=== PATIENT | male | born 1950 | race Caucasian/White ===

== ENCOUNTER → 2018-11-28 10:52 | Outpatient (CLI) | payer MEDICARE, BC | END | disposition home or self-care (01) | LOC: D.HCCECHO 10:52 → D.HCCARDIO 11:00 → D.HCCECHO 11:00 | PROVIDERS: ATTEND Internal Medicine Cardiovascular Disease | DX: I34.0 Nonrheumatic mitral (valve) insufficiency (principal) ==

== ENCOUNTER → 2019-11-26 08:57 | Outpatient (CLI) | payer MEDICARE, BC | END | disposition home or self-care (01) | LOC: D.HCCECHO 08:57 | PROVIDERS: ATTEND Internal Medicine Cardiovascular Disease | DX: I34.0 Nonrheumatic mitral (valve) insufficiency (principal) ==

== ENCOUNTER → 2019-12-15 08:59 | Outpatient (CLI) | payer MEDICARE, BC | END | disposition home or self-care (01) | LOC: D.HCCARDIO 08:59 | PROVIDERS: ATTEND Internal Medicine Cardiovascular Disease | DX: I20.9 Angina pectoris, unspecified (principal) ==

== ENCOUNTER 2019-12-31 11:33 | Day surgery (SDC) | payer MEDICARE, BC ==
[~2019-12-31] VITALS: Ht 182.9 cm; Wt 92.1 kg
--- NOTE | ~2019-12-31 | HEMODYNAMI ---
PATIENT:NIGEL YATES MEDICAL RECORD: [id number] : 54 LOCATION:[facility] ADMISSION DATE: 12/31/19 Generatedon:12/31/201913:16 Patient name: NIGEL YATES Patient #: [id number] SSN: : 1950 Date of study: 12/31/2019 Page: Of Hemodynamic Procedure Report Patient Data Patient Demographics Procedure consent was obtained First Name: NIGEL Gender: Male Last Name: TRUDY : 1950 [facility] Initial: KHALIDA Age: 69 year(s) Patient #: [id number] Race: Unknown Additional ID: [id number] Contact details Address: [address] [place] [address] State: [place] City: [place] Zip code: [address] Past Medical History Allergies: No known allergies Admission Admission Data Admission Date: 12/31/2019 Admission Time: 11:33 Lab Results Lab Result Date: 12/31/2019 Lab Result Time: 0:00 Biochemistry Name Units Result Min Max BUN mg/dl 17 --(---*)-- 7 18 Creatinine mg/dl 1.1 --(--*-)-- 0.6 1.3 eGFR ml/min 70.15900 *-(----)-- 90 120 NONAFRICAN CBC Name Units Result Min Max Hematocrit % 42.9 --(*---)-- 42 54 Hemoglobin g/dl 14.3 --(*---)-- 13.5 17.5 Procedure Procedure Types Cath Procedure Diagnostic Procedure LHC LHC w/Coronaries Sedation Charges Moderate Sedation up to 15 minutes Procedure Description Procedure Date Procedure Date: 12/31/2019 Procedure Start Time: 13:00 Procedure End Time: 13:12 Procedure Staff Name Function Luigi Garnett MD Performing Physician Millie Wilkinson RT Monitor Elli Edwards RT Scrub Darshan Mcknight RN Nurse Procedure Data Cath Procedure Fluoroscopy Diagnostic fluoroscopy Total fluoroscopy Time: 1.6 time: 1.6 min min Diagnostic fluoroscopy Total fluoroscopy dose: 513 dose: 513 mGy mGy Contrast Material Contrast Material Type Amount (ml) Isovue 300 47 Entry Location Entry Primary Successful Side Size Upsize Upsize Entry Closure Succes sful Closure Location (Fr) 1 (Fr) 2 (Fr) Remarks Device Remarks Femoral Right 5 Fr Exoseal artery Estimated blood loss: 5 ml Diagnostic catheters Device Type Used For End Catheter Placement MULTIPACK JL 4.0 5Fr Procedure catheter MULTIPACK 3DRC 5Fr Procedure catheter MULTIPACK Pigtail 5 Fr Procedure catheter Procedure Complications No complications Procedure Medications Medication Administration Route Dosage 0.9% NaCl I.V. 100 ml/hr Oxygen etCO2 Nasal cannula 2 l/min Heparin Flush Bag added to field 2 bags (1000units/500ml NS) Lidocaine 2% added to field 20 Benadryl I.V. 50 mg Versed I.V. 2 mg Fentanyl I.V. 50 mcg Fentanyl I.V. 50 mcg Versed I.V. 1 mg Hemodynamics Rest HGB: 14.3 (g/dl) Heart Rate: 62 (bpm) Pressure Samples Time Site Value (mmHg) Purpose Heart Use Rate(bpm) 13:07 LV 135/-6,21 Snapshot 67 Gradients Valve Time Site Site Mean SEP/DFP Peak To Heart Use 1 2 (mmHg) (sec/min) Peak Rate (mmHg) (bpm) Aortic 13:08 LV AO 64 Snapshots Pre Cath Intra NCS Post Cath Vital Signs Time Heart Resp SPO2 etCO2 NIBP (mmHg) Rhythm Pain Sedation Rate (ipm) (%) (mmHg) Status Level (bpm) 12:46:14 60 13 97 0 128/79(97) NSR 0 (11) 10(A) , No pain 12:50:24 58 16 96 32.2 132/85(120) NSR 0 (11) 10(A) , No pain 12:54:38 61 11 94 39 144/77(112) NSR 0 (11) 10(A) , No pain 12:58:56 60 13 97 9 126/75(92) NSR 0 (11) 10(A) , No pain 13:03:06 59 20 99 46.5 130/80(98) NSR 0 (11) 9(A) , No pain 13:07:20 65 15 95 2.2 125/72(101) NSR 0 (11) 9(A) , No pain 13:11:30 62 11 97 8.2 125/77(93) NSR 0 (11) 9(A) , No pain Medications Time Medication Route Dose Verified Delivered Reason Notes Eff ectiveness by by 12:48:41 0.9% NaCl I.V. 100 Darshan Darshan Per ml/hr Juan Luis Mcknight physician RN RN 12:48:52 Oxygen etCO2 2 Darshan Darshan for low 02 Nasal l/min Lorigan Lorigan sats cannula RN RN 12:49:03 Heparin Flush added 2 Darshan Darshan used for Bag to bags Lorigan Lorigan procedure (1000units/500ml field RN RN NS) 12:49:13 Lidocaine 2% added 20ml Darshan Darshan for local to vial Lorigan Lorigan anesthetic field RN RN 12:53:37 Benadryl I.V. 50 mg Darshan Darshan Per Juan Luis Mcknight physician RN RN 12:55:23 Versed I.V. 2 mg Darshan Darshan for Lorigan Lorigan sedation RN RN 12:55:33 Fentanyl I.V. 50 Darshan Darshan for chest mcg Lorigan Lorigan pain RN RN 13:00:28 Fentanyl I.V. 50 Darshan Darshan for chest mcg Lorigan Lorigan pain RN RN 13:01:52 Versed I.V. 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 Start room use. 12:30:38 Informed consent obtained and on chart 12:37:11 Procedure Status Elective Heart Cath (OP). 12:37:12 Time tracking: Regular hours (M-F 7:00 - 5:00) 12:37:15 Plan of Care:Hemodynamics will remain stable., Cardiac rhythm will remain stable., Comfort level will be maintained., Respiratory function will remain adequate., Patient/ family verbilizes understanding of procedure., Procedure tolerated without complication., Recovers from procedure without complications.. 12:44:04 Patient received from Pre/Post Procedure Room to CCL 2 Alert and oriented. Tansferred to table in Supine position. 12:44:05 Warm blankets applied, and javy hugger turned on for patient comfort. 12:44:06 Correct patient and procedure confirmed by team. 12:44:06 ECG and BP/O2 sat monitors applied to patient. 12:44:08 Vital chart was started 12:44:13 Rhythm: sinus rhythm 12:44:14 Full Disclosure recording started 12::22 H&P Date Dictated: 12/09/2019 Within 30 days and on chart., H&P Addendum completed by physician on day of procedure. (MUST COMPLETE FOR ALL OUTPATIENTS). 12:44:23 Pre-procedure instructions explained to patient. 12:44:23 Pre-op teaching completed and patient verbalized understanding. 12:44:24 Family in patients room. 12:44:25 Patient NPO since Midnight. 12:44:29 Patient allergic to No known allergies 12:44:31 Is the patient allergic to Iodine/contrast media? No. 12:44:32 Is patient on blood thinner?Yes 12:44:43 LAST DOSE OF ELIQUIS SUNDAY 12:44:45 Patient diabetic? No. 12:44:49 Previous problem with sedation/anesthesia? No ? 12:44:49 Snore? Yes 12:44:50 Sleep apnea? No 12:44:52 Deviated septum? No 12:44:53 Opens mouth fully? Yes 12:44:57 Sticks out tongue? Yes 12:44:58 Airway obstruction? No ? 12:45:01 Dentures? No ? 12:45:05 Pre procedure: right dorsailis pedis pulse 2+ Normal; easily identifiable; not easily obliterated 12:45:07 Modified Mario's test Ulnar > 7 seconds. 12:45:09 Patient pain scale 0/10 ?. 12:45:12 IV patent on arrival in left hand with 0.9% NaCl at [facility]. 12:47:17 Lab Result : BUN 17 mg/dl 12:47:17 Lab Result : Creatinine 1.1 mg/dl 12:47:17 Lab Result : eGFR NONAFRICAN 70.68972 ml/min 12:47:17 Lab Result : Hemoglobin 14.3 g/dl 12:47:17 Lab Result : Hematocrit 42.9 % 12:47:20 Lab results completed and on chart. 12:47:24 Right groin area was prepped with chlora-prep and draped in sterile fashion 12:47:25 Alarms reviewed by RConnie N. 12:47:25 Sharps counted by scrub and verified by R.N. 12:48:41 0.9% NaCl 100 ml/hr I.V. was administered by Darshan Mcknight RN; Per physician; Verbal order read back and verified. 12:48:52 Oxygen 2 l/min etCO2 Nasal cannula was administered by Darshan Mcknight RN; for low 02 sats; Verbal order read back and verified. 12:49:03 Heparin Flush Bag (1000units/500ml NS) 2 bags added to field was administered by Darshan Mcknight RN; used for procedure; Verbal order read back and verified. 12:49:13 Lidocaine 2% 20ml vial added to field was administered by Darshan Mcknight RN; for local anesthetic; Verbal order read back and verified. 12:53:37 Benadryl 50 mg I.V. was administered by Darshan Mcknight RN; Per physician; Verbal order read back and verified. 12:54:00 Use device set Femoral Dx 12:54:01 ACIST Syringe (40936) opened to sterile field. 12:54:01 Bag Decanter (2002S) opened to sterile field. 12:54:02 ACIST Hand Control (64132) opened to sterile field. 12:54:03 ACIST Manifold (47610) opened to sterile field. 12:54:04 Tegaderm 4 x 4 (1626W) opened to sterile field. 12:54:05 Medline Cath Pack ([id number]) opened to sterile field. 12:54:07 DIAGNOSTIC Multipack 5Fr catheter set (GR0688) opened to sterile field. 12:54:08 SHEATH 5FR [place] (WJM262) opened to sterile field. 12:54:08 EMERALD Guide Wire (832-568) opened to sterile field. 12:54:38 Baseline sample Acquired. 12:54:57 --------ALL STOP TIME OUT------ 12:54:57 Final Timeout: patient, procedure, and site verified with staff and physician. All members of the team are in agreement. 12:54:58 Right groin site verified by team. 12:55:02 Fire Safety Assessment: A--An alcohol-based skin anteseptic being used preoperatively., C--Open oxygen or nitrous oxide is being used., D--An ESU, laser, or fiber-optic light is being used. 12:55:04 Physical assessment completed. ASA score P 2 - A patient with mild systemic disease as per Luigi Garnett MD. 12:55:07 2) 60-89 Mildly reduced kidney function, and other findings (as for stage 1) point to kidney disease. 12:55:11 Maximum allowable contrast dose (3.7 X eGFR X 0.75)197 ml. 12:55:14 Sedation plan: IV Moderate Sedation Medication:Versed, Fentanyl 12:55:23 Versed 2 mg I.V. was administered by Darshan Mcknight RN; for sedation; Verbal order read back and verified. 12:55:33 Fentanyl 50 mcg I.V. was administered by Darshan Mcknight RN; for chest pain; Verbal order read back and verified. 12:59:40 Zero performed for pressure channel P1 13:00:13 Procedure started. 13:00:23 Local anesthetic to right femoral artery with Lidocaine 2% by Luigi Garnett MD.INITIAL ACCESS ONLY 13:00:28 Fentanyl 50 mcg I.V. was administered by Darshan Mcknight RN; for chest pain; Verbal order read back and verified. 13:01:52 Versed 1 mg I.V. was administered by Darshan Mcknight RN; for sedation; Verbal order read back and verified. 13:02:12 A 5 Fr sheath was inserted into the Right Femoral artery 13:02:31 A MULTIPACK JL 4.0 5Fr catheter was advanced over the wire and used for Procedure. 13:03:52 LCA angiography performed. 13:04:12 Catheter exchanged over wire. 13:05:08 A MULTIPACK 3DRC 5Fr catheter was advanced over the wire and used for Procedure. 13:05:39 RCA angiography performed. 13:05:41 Catheter exchanged over wire. 13:05:42 ACCDominant side:Right 13:05:55 A MULTIPACK Pigtail 5 Fr catheter was advanced over the wire and used for Procedure. 13:07:24 LV gram done using YOON 13:07:26 Injector settings: Ml/sec: 10, Volume: 20, 13:07:33 LV hemodynamics recorded. 13:07:48 EF : 50 % 13:08:15 Catheter removed. 13:08:34 EXOSEAL 5Fr (EX500) opened to sterile field. 13:09:33 Sheath removed intact; hemostasis achieved with Exoseal to the Right Femoral artery. 13:09:48 Procedure ended.(Physican Out) 13:09:57 Fluoroscopy time 01.60 minutes. 13:10:04 Fluoroscopy dose: 513 mGy 13:10:04 Flurop Dose total: 513 13:10:09 Dose Area Product 31149 mGy/cm. 13:10:11 Contrast amount:Isovue 300 47ml. 13:10:13 Maximum allowable dose exceeded? No. 13:10:14 Sharps counted by scrub and verified by R.N. 13:10:17 Post-op/insertion site Right Femoral artery dressed using a 4 x 4 and Tegaderm. 13:10:19 Post-procedure physical assessment completed. ASA score P 2 - A patient with mild systemic disease as per Luigi Garnett MD. 13:10:22 Post procedure rhythm: sinus rhythm 13:10:24 Estimated blood loss: 5 ml 13:10:25 Post procedure instruction explained to patient.Patient verbalizes understanding. 13:10:25 Patient needs reinforcement of post procedure teaching. 13:10:50 Procedure type changed to Cath procedure, Diagnostic procedure, LHC, C w/Coronaries, Sedation Charges, Moderate Sedation up to 15 minutes 13:11:07 Procedure and supply charges have been captured, reviewed, submitted and are correct. 13:11:11 Procedure Complication : No complications 13:11:14 [facility] Findings: mild to moderate CAD (<70%) 13:11:15 Operative report dictated upon procedure completion. 13:11:15 See physician's report for complete and final results. 13:12:33 Vital chart was stopped 13:12:35 Report given to Pre/Post Procedure Room. 13:12:40 Patient transfered to Pre/Post Procedure Room with Bed. 13:12:42 Procedure ended. 13:12:42 Full Disclosure recording stopped 13:12:52 End room use (Document Last) 13:14:57 End room use (Document Last) 13:15:13 End room use (Document Last) Device Usage Item Name Manufacture Quantity Catalog Hospital Part Current Minimal L ot# / Number Charge Number Stock Stock Serial# Code SIMRAN Senist 1 09537 [id number] [id number] 20 Syringe Stamped (12128) Systems Inc Bag Microtek 1 697487 30499 403406 5 Decanter Stamped Inc. () ACIST Hand Acist 1 39884 703608 266695 152827 5 Control Medical (73200) Systems Inc ACIST Acist 1 91345 725670 436360 641442 5 Manifold Medical (64847) Systems Inc Tegaderm 4 3M 1 1626W 218169 676624 512597 5 x 4 (1626W) Medline Medline 1 [id number] 480906 51943 686927 5 Cath Pack ([id number]) DIAGNOSTIC Cardinal 1 [id number] 692897 42343 738843 30 Multipack Health 5Fr catheter set (ET5486) SHEATH 5FR Terumo 1 HHT425 891161 157061 277435 5 [place] (KUL902) EMERALD Cardinal 1 459-868 701019 008161 640011 5 Guide Wire Health (239-583) MULTIPACK Cardinal 1 487697 5 JL 4.0 5Fr Health catheter MULTIPACK Cardinal 1 936870 5 3DRC 5Fr Health catheter MULTIPACK Cardinal 1 275415 5 Pigtail 5 Health Fr catheter EXOSEAL 5Fr Cardinal 1 EX500 833173 715160 412315 10 (EX500) Health Signature Audit [place] Stage Time Signature Unsigned Intra-Procedure 12/31/2019 Millie Wilkinson 1:14:57 PM RT(R) Intra-Procedure 12/31/2019 Darshan 1:15:13 PM Juan Luis COELHO Intra-Procedure 12/31/2019 Luigi Garnett MD 1:16:01 PM Signatures Performing Physician : Signature : Luigi Garnett MD Date : Time : Monitor : Millie Wilkinson Signature : RT Date : Time : Nurse : Darshan Mcknight Signature : RN Date : Time : [place] [id number] [place] [address]
[2019-12-31] MEDS ORDERED: LISINOPRIL10 MG PO (11:52)
[2019-12-31] MEDS ORDERED: ELIQUIS5 MG PO (11:52)
[2019-12-31 12:04] VITALS: BP 148/108; Ht 182.9 cm; Wt 92.1 kg
[2019-12-31 12:14] LABS: BASOPHILS 0.2 % (0-2); EOSINOPHILS 2.9 % (0-7); HEMATOCRIT 42.9 % (42.0-54.0); HEMOGLOBIN 14.3 g/dL (13.5-17.5); IMMATURE GRANULOCYTES 0.2 % (0-5); LYMPHOCYTES 30.7 % (15-50); MCH 31.8 pg (26.0-34.0); MCHC 33.3 g/dL (31.0-37.0); MCV 95.3 fL (80.0-100.0); MEAN PLATELET VOLUME 10.2 fL (7.4-10.4); MONOCYTES 12.4 % (2-11); NEUTROPHILS 53.6 % (40-80); PLATELET COUNT 153 10x3/uL (130-400); RDW 12.7 % (11.5-14.5); WBC 5.2 10x3/uL (4.8-10.8)
[2019-12-31 12:29] LABS: ANION GAP 9.5 mmol/L (8-16); CALCIUM 8.7 mg/dL (8.5-10.1); CARBON DIOXIDE 28.2 mmol/L (21.0-32.0); CHOL - HDL RATIO 2.2 ratio (2.3-4.9); CREATININE - SERUM 1.1 mg/dL (0.6-1.3); LDL-HDL RATIO 0.9 ratio (1.5-3.5); POTASSIUM - SERUM 3.7 mmol/L (3.5-5.1)
--- NOTE | 2019-12-31 13:25 | NUR ---
PT RECEIVED VIA STRETCHER FROM [facility]UNICATIONS SPECIALIST FOR [facility]OV[facility]. PT SLEEPING BUT VERBALLY AROUSABLE. PT DENIES CHEST PAIN OR DISCOMFORT. IV PATENT INFUSING VIA L ARM PER ORDERS. PT PLACED ON CARDIAC MONITORS AND O2 VIA NC AT 2L. HR NSR RATE 65, BP 148/78, RR 13, SAT 98. R GROIN SOFT, DRSSING CDI NO S/S HEMATOMA OR BLEEDING. LEG PINK AND WARM, PEDAL PULSES PALPABLE. PT INSTRUCTED TO KEEP LEG STRAIGHT AND HEAD ON PILLOW. AT BS, CALL LIGHT IN REACH
--- NOTE | 2019-12-31 13:45 | NUR ---
PT RESTING COMFORTALBY, R GROIN SOFT, DRESSING CDI NO S/S HEMATOMA OR BLEEDING. VSS AT PRESENT. CALL LIGHT IN REACH, AT BS.
--- NOTE | 2019-12-31 14:26 | NUR ---
R GROIN SOFT, DRESSING REMAINS CDI NO S/S HEMATOMA OR BLEEDING NOTED. HOB ELEVATED SLIGHTLY. VSS AT PRESENT. CALL LIGHT IN REACH
--- NOTE | 2019-12-31 14:44 | NUR ---
PT C/O SOME CHEST PRESSURE DESCRIBES A DISCOMFORT ON L U CHEST. VSS, PT DOESN'T THINK IT IS HEARTBURN. WILL NOTIFY DR CASTRO FOR FURTHER ORDERS. PAIN WAS RATED 3/10. CALL LIGHT IN REACH, AT BS. PT DENIES NAUSEA OR OTHER SYMPTOMS.
--- NOTE | 2019-12-31 15:10 | NUR ---
GI COCKTAIL ORDERED AND GIVEN PO. STATES PRESSURE IS ABOUT THE SAME. DR CASTRO WILL BE OVER TO ASSESS FOR FURTHER ORDERS. HR NSR RATE 60, BP 148/84, RR 12, SAT 98 ON ROOM AIR. CALL LIGHT IN REACH. PT VOIDED ABOUT 500 CC CLEAR YELLOW URINE VIA URINAL.
--- NOTE | 2019-12-31 15:34 | NUR ---
PT STATES CHEST DISCOMFORT IS SOME BETTER BUT STILL THERE. 200 CC CLEAR YELLOW URINE VIA URINAL. V/S REMAIN STABLE. WAITING ON DR. CASTRO TO COME SEE PT. CALL LIGHT IN REACH
--- NOTE | 2019-12-31 16:00 | NUR ---
DISCHARGE INSTRUCTIONS REVIEWED W PT AND , BOTH VERBALIZED UNDERSTANDING.
--- NOTE | 2019-12-31 16:15 | NUR ---
DR CASTRO AT , NO NEW ORDERS RECEIVED. OK TO PROCEED WITH DISCHARGE. IV REMOVED W CATH INTACT, MONITORS REMOVED. GROIN REMAINS SOFT, NO S/S HEMATOMA. PT UP TO DRESS FOR DISCHARGE.
--- NOTE | 2019-12-31 16:28 | NUR ---
PT DISCHARGED VIA WC AFTER STOPPING AT BR TO WAITING IN PRIVATE VEHICLE. PT HAD ALL BELONGINGS AND DISCHARGE PAPERWORK
== END 2019-12-31 16:25 | disposition home or self-care (01) ==
LOC: D.CATH 11:33
PROVIDERS: ATTEND Internal Medicine Cardiovascular Disease
DX: I20.9 Angina pectoris, unspecified (principal); R94.39 Abnormal result of other cardiovascular function study; R07.9 Chest pain, unspecified; D86.9 Sarcoidosis, unspecified; E78.5 Hyperlipidemia, unspecified; I34.0 Nonrheumatic mitral (valve) insufficiency